=== PATIENT | male | born 1970 | race African-American/Black ===

== ENCOUNTER 2018-09-19 06:45 | Emergency (ER) | payer OTHER ==
--- NOTE | 2018-09-19 09:53 | ER Document Report ---
HPI - HPI Patient complains to provider of: spider bites Time Seen by Provider: 09/19/18 09:29 Pain Level: 3 Context: 40-year-old healthy male presents emergency department with chief complaint of spider bites. He was crawling in her house yesterday at work and was waiting to spider ribs and came out he started getting itchy. He started developing pustules in his bilateral ankles, groin, chest, bilateral arms. He said it started as itching but then turned pustular. Does not have a definitive source for a bite. States it is painless but just severe itching. Denies fevers or chills. Past Medical History - Social History Smoking Status: Current Every Day Smoker Frequency of alcohol use: 3-4xs weekly Family History: None Patient has suicidal ideation: No Patient has homicidal ideation: No Renal/ Medical History: Denies: Hx Peritoneal Dialysis Vertical Provider Document - CONSTITUTIONAL Notes: PHYSICAL EXAMINATION: Reviewed vital signs and charting by RN GENERAL: Alert, interacts well. No acute distress. HEAD: Normocephalic, atraumatic. EYES: Pupils equal, round, and reactive to light. Extraocular movements intact. ENT: Oral mucosa moist, tongue midline. EXTREMITIES: Moves all 4 extremities spontaneously. No edema, No cyanosis. PSYCH: Normal affect, normal mood. SKIN: Warm, dry, normal turgor. Several areas of pustules some spontaneously deroofed oozing clear/yellowish sanguinous fluid that is sporadic and systemic, worst around the ankles there are a couple of areas one in the groin with underlying erythema concerning for mild cellulitis Course - Re-evaluation Re-evalutation: 09/19/18 09:50 Well-appearing, systemic sporadic pustular lesions of unknown etiology but with a known environmental source from outdoors. I will treat him with prednisone 60 mg daily for 5 days, give him Atarax for symptomatic relief, and there are a couple of areas that are concerning for an early cellulitis so I will give him Keflex 500 mg 4 times a day for 5 days. ok For discharge - Vital Signs Vital signs: Temp Pulse Resp BP Pulse Ox 98.3 F 90 18 131/87 H 99 09/19/18 06:51 09/19/18 06:51 09/19/18 06:51 09/19/18 06:51 09/19/18 06:51 Discharge - Discharge Clinical Impression: Bites and stings, insect Qualifiers: Encounter type: initial encounter Qualified Code(s): W57.XXXA - Bitten or stung by nonvenomous insect and other nonvenomous arthropods, initial encounter Condition: Good Disposition: HOME, SELF-CARE Additional Instructions: You were seen in the emergency department this morning for bites of an unknown source. They do not appear to be brown recluse bites but if your skin starts to get black and necrotic you should immediately return to the emergency department for reevaluation. It is most likely from a spider of nonmedical importance, fire aunts, or some type of foliage underneath the house you were crawling th rough. Regardless the treatment is high-dose steroids. I am giving you prednisone 60 mg daily for 5 days. Please take 3 tablets all at once in the morning for 5 days. I am also giving a prescription for Keflex 500 mg 4 times per day by mouth. There are a couple of areas that are starting to get a little red that may or may not be an impending cellulitis. Regardless if they start to get worse or if you are concerned you can take the antibiotic as well. I am also giving Atarax that is for symptomatic relief only it is like Benadryl but sometimes works better for itching. If lesions get black as stated above, he start to get a fever, you become ill feeling, the lesions get worse, any of the areas become hot and red, or you have any other concerns please come back to the emergency department for reevaluation. I would like you to return in 24 hours for reevaluation to ensure that the steroids are doing its job and that we are moving in the right direction. Please use your best judgment, though.
[2018-09-19] MEDS ORDERED: HYDROXYZINE HCL 10 MG TABLET PO ONE (09:54)
[2018-09-19] MEDS ORDERED: PREDNISONE 20 MG TABLET PO ONE (09:54)
[2018-09-19 10:15] VITALS: BP 123/76
== END 2018-09-19 10:15 | disposition home or self-care (01) ==
LOC: ER 06:45
DX: T14.8XXA Other injury of unspecified body region, initial encounter (principal); W57.XXXA Bitten or stung by nonvenomous insect and other nonvenomous arthropods, initial encounter; F17.200 Nicotine dependence, unspecified, uncomplicated
CPT/HCPCS: 99281; J7512

== ENCOUNTER 2018-09-20 06:26 | Emergency (ER) | payer OTHER ==
--- NOTE | 2018-09-20 09:17 | ER Document Report ---
ED General - General Chief Complaint: Insect Bite Stated Complaint: POSSIBLE BUG BITE Time Seen by Provider: 09/20/18 08:35 Notes: Very pleasant 48-year-old male presents emergency department for worsening of bug bites. He was seen yesterday here by me and I instructed him for a 24-hour follow-up if his symptoms worsened or did not improve. He said that the bites on his ankles actually gotten worse and now look like bullous pemphigoid. He has no fevers, does not feel like his throat is closing up, no abdominal pain, nausea, vomiting. He does not have any itching. He just said that the the pustules have developed into bullae and many of them have opened up and there is a lot of underlying erythema and many of them. I placed him on a round of Keflex and gave him steroids yesterday and he did get those filled. TRAVEL OUTSIDE OF THE [place] IN LAST 30 DAYS: No - Related Data Allergies/Adverse Reactions: No Known Allergies Allergy (Unverified 09/19/18 07:54) Past Medical History - Social History Smoking Status: Unknown if Ever Smoked Family History: None Patient has suicidal ideation: No Patient has homicidal ideation: No Renal/ Medical History: Denies: Hx Peritoneal Dialysis Review of Systems - Review of Systems Constitutional: See HPI EENT: No symptoms reported Cardiovascular: See HPI Respiratory: See HPI Gastrointestinal: See HPI Genitourinary: No symptoms reported Male Genitourinary: No symptoms reported Musculoskeletal: No symptoms reported Skin: No symptoms reported Hematologic/Lymphatic: No symptoms reported Neurological/Psychological: No symptoms reported Physical Exam - Vital signs Vitals: Temp Pulse Resp BP Pulse Ox 98.3 F 79 16 126/83 H 96 09/20/18 06:32 09/20/18 06:32 09/20/18 06:32 09/20/18 06:32 09/20/18 06:32 - Notes Notes: PHYSICAL EXAMINATION: Reviewed vital signs and charting by RN GENERAL: Alert, interacts well. No acute distress. HEAD: Normocephalic, atraumatic. EYES: Pupils equal, round, and reactive to light. Extraocular movements intact. ENT: Oral mucosa moist, tongue midline. ABDOMEN: soft, non-tender. No distention. Bowel sounds present EXTREMITIES: Moves all 4 extremities spontaneously. No edema, No cyanosis. PSYCH: Normal affect, normal mood. SKIN: Warm, dry, normal turgor. 3 or 4 bullae on the left ankle that have increased from yesterday several areas of pustules that have deroofed on their own with some underlying erythema on bilateral ankles, thighs, left groin. Course - Re-evaluation Re-evalutation: 09/20/18 10:24 Patient return for 24-hour recheck. Left ankle has gotten worse the pustules have developed into bullae. I discussed with Dr. Amezquita and asked him to come briefly take a look at the patient. Most likely due to fire aunts and patient had a severe histamine reaction. Plan is to add Bactrim for MRSA coverage, add Benadryl 25 mg to 50 mg 3 times daily, Zantac twice daily, and continue with the Keflex and steroids. I gave him Rocephin 1 g IM here in the emergency department to augment the Keflex. I will also give him mupirocin to put over some of the open deroofed wounds. There is no evidence of anaphylaxis, throat is not tight, no nausea or vomiting, and I instructed patient once he gets insurance he should follow-up with primary to get dermatology consult. I have explained to patient the plan and course of action and gave him strict return precautions. At this time patient is stable for discharge. - Vital Signs Vital signs: Temp Pulse Resp BP Pulse Ox 98.3 F 79 16 126/83 H 96 09/20/18 06:32 09/20/18 06:32 09/20/18 06:32 09/20/18 06:32 09/20/18 06:32 Discharge - Discharge Clinical Impression: Bug bites Qualifiers: Encounter type: subsequent encounter Qualified Code(s): W57.XXXD - Bitten or stung by nonvenomous insect and other nonvenomous arthropods, subsequent encounter Condition: Good Disposition: HOME, SELF-CARE Additional Instructions: You are seen in the emergency department this morning for follow-up from your visit yesterday. After discussion with the attending physician and the progression of the bites it looks like you most likely are suffering from fire ant bites considering how diffuse they are. You are suffering from an allergic reaction from them. Because of this we are going to increase the treatment plan. We have added a medication called Bactrim which she should take twice a day for 7 days. Also, I want you to take Benadryl 25 or 50 mg 3 times a day. Because Benadryl is sedating I recommend that you take 25 mg during the day and then a 50 mg dose at night. Also, please go get [id number] Zantac and take it twice a day. We have also given you a shot of an antibiotic here in the emergency department this morning called Cale that will help to augment to the Keflex that you are already on. 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 Once your insurance is all set up and you establish primary care it would be a good idea to get a dermatology consult. If you start to develop fevers, your throat starts to close up, you develop abdominal pain or have nausea or vomiting, you get worsening redness or warmth at the site of those bites, or you have any other concerning symptoms please return for reevaluation. Also, please continue to take the steroids and finish them out. Prescriptions: Sulfamethoxazole/Trimethoprim [Bactrim Ds Tablet] 1 each PO BID 7 Days #14 tablet
[2018-09-20] MEDS ORDERED: CEFTRIAXONE 1 GM/D5W RTU 1 GM/50 ML RTUPB IV ONE (10:07)
[2018-09-20] MEDS ORDERED: SULFAMETHOXAZOLE/TRIMETHOPRIM 800-160 MG TABLET PO ONE (10:07)
[2018-09-20] MEDS ORDERED: FAMOTIDINE 20 MG TABLET PO ONE (10:08)
[2018-09-20] MEDS ORDERED: CEFTRIAXONE INJ 1000 MG VIAL IM ONE (10:30)
[2018-09-20] MEDS ORDERED: LIDOCAINE 1% INJ (10 MG/ML) 10 ML MDV INJ ONE (10:30)
[2018-09-20 11:24] VITALS: BP 122/86
== END 2018-09-20 11:24 | disposition home or self-care (01) ==
LOC: ER 06:26
DX: S90.562A Insect bite (nonvenomous), left ankle, initial encounter (principal); S90.561A Insect bite (nonvenomous), right ankle, initial encounter; W57.XXXA Bitten or stung by nonvenomous insect and other nonvenomous arthropods, initial encounter
CPT/HCPCS: 99281; 96372; J0696

== ENCOUNTER 2018-09-22 15:08 | Emergency (ER) | payer OTHER ==
--- NOTE | 2018-09-22 17:18 | ER Document Report ---
ED Medical Screen (RME) - General Chief Complaint: Insect Bite Stated Complaint: POSSIBLE INSECT BITE Time Seen by Provider: 09/22/18 16:09 Mode of Arrival: Ambulatory Information source: Patient Notes: Patient presents the emergency department with complaints of "insect bite" recheck. Patient reports fluid-filled blisters to his bilateral ankles as well as itchy and painful bumps to his groin, thighs, abdomen and arms. Patient reports he has been seen here twice for this and it continues to worsen. Patient reports he is already taking 2 different antibiotics and a round of steroids. I have greeted and performed a rapid initial assessment of this patient. A comprehensive ED assessment and evaluation of the patient, analysis of test results and completion of the medical decision making process will be conducted by additional ED providers. Dictation of this chart was performed using voice recognition software; therefore, there may be some unintended grammatical errors. TRAVEL OUTSIDE OF THE [place] IN LAST 30 DAYS: No - Related Data Allergies/Adverse Reactions: No Known Allergies Allergy (Verified 09/22/18 15:10) Past Medical History Renal/ Medical History: Denies: Hx Peritoneal Dialysis Physical Exam - Vital signs Vitals: Temp Pulse Resp BP Pulse Ox 98.1 F 84 18 119/76 98 09/22/18 15:13 09/22/18 15:13 09/22/18 15:13 09/22/18 15:13 09/22/18 15:13 Course - Vital Signs Vital signs: Temp Pulse Resp BP Pulse Ox 98.1 F 84 18 119/76 98 09/22/18 15:13 09/22/18 15:13 09/22/18 15:13 09/22/18 15:13 09/22/18 15:13
--- NOTE | 2018-09-22 18:49 | ER Document Report ---
ED General - General Chief Complaint: Insect Bite Stated Complaint: POSSIBLE INSECT BITE Time Seen by Provider: 09/22/18 16:09 Mode of Arrival: Ambulatory Information source: Patient Notes: This is a 48-year-old man with no significant medical problems that was working underneath a house on Wednesday between 11 AM and 1 PM and after coming out from underneath the house he noticed several lesions to the bottoms of his right foot. He does have some lesions on his inner right thigh and even on his penis. He was seen on 09/19 and treated with prednisone, Atarax and Keflex. He returned on 09/20 and was placed on Bactrim and given Benadryl. He returns today because of significant blistering lesions and he says they are getting worse. He is not been taking the Keflex. He denies any fever. TRAVEL OUTSIDE OF THE [place] IN LAST 30 DAYS: No - HPI Onset: Last week Onset/Duration: Gradual Quality of pain: Other Severity: None Pain Level: Denies Associated symptoms: denies: Chest pain, Fever - Irritation Exacerbated by: Denies Relieved by: Denies Similar symptoms previously: Yes Recently seen / treated by doctor: Yes - Related Data Allergies/Adverse Reactions: No Known Allergies Allergy (Verified 09/22/18 15:10) Past Medical History - General Information source: Patient - Social History Smoking Status: Unknown if Ever Smoked Cigarette use (# per day): No Chew tobacco use (# tins/day): No Frequency of alcohol use: None Drug Abuse: None Lives with: Family Family History: None Patient has suicidal ideation: No Patient has homicidal ideation: No - Medical History Medical History: Negative Renal/ Medical History: Denies: Hx Peritoneal Dialysis Surgical Hx: Negative Review of Systems - Review of Systems Constitutional: denies: Chills, Fever EENT: No symptoms reported Cardiovascular: No symptoms reported Respiratory: No symptoms reported Gastrointestinal: No symptoms reported Genitourinary: No symptoms reported Male Genitourinary: No symptoms reported Musculoskeletal: See HPI Skin: See HPI Hematologic/Lymphatic: No symptoms reported Neurological/Psychological: No symptoms reported Physical Exam - Vital signs Vitals: Temp Pulse Resp BP Pulse Ox 98.1 F 84 18 119/76 98 09/22/18 15:13 09/22/18 15:13 09/22/18 15:13 09/22/18 15:13 09/22/18 15:13 Notes: Physical exam: GENERAL: She is alert and oriented x3, no acute distress HEAD: Atraumatic, normocephalic. EYES: Pupils equal round and reactive to light, extraocular movements intact, sclera anicteric, conjunctiva are normal. ENT: Moist mucous membranes. NECK: Normal range of motion, supple Genitalia: He does have a few lesions on the head of the penis and on the scrotum. There is no fluctuance or evidence of secondary infection. NEUROLOGICAL: Cranial nerves II through XII grossly intact. Normal speech, moving all extremities. PSYCH: Normal mood, normal affect. Extremities: Patient does have lesions on the right thigh with some surrounding erythema. There is no drainage or fluctuance or suggestion of abscess. Right lower extremity patient does have several papular type lesions with blistering that appear to be fire ant lesions. He does have 2 large blisters on the medial aspect of the ankle. There is some overlying erythema but does not appear to have significant secondary infection at this time. The patient does have chronic changes on the dorsum of the ankle consistent with eczema. SKIN: Lesions as noted above. Course - Re-evaluation Re-evalutation: 09/22/18 18:45 1 of the blistering lesions was drained and a wound culture sent. Wound was dressed with Xeroform, 4 x 4's and Kerlix. We will have patient back for a wound check in 2 days. I will go over the patient's medical regimen with him. He was given chlorhexidine wash for the shower 09/22/18 18:46 - Vital Signs Vital signs: Temp Pulse Resp BP Pulse Ox 97.8 F 63 18 130/85 H 99 09/22/18 18:57 09/22/18 18:57 09/22/18 18:57 09/22/18 18:57 09/22/18 18:57 Discharge - Discharge Clinical Impression: Insect bites to the lower extremity Condition: Stable Disposition: HOME, SELF-CARE Additional Instructions: As far as the medications and when she did take: Continue with the Bactrim (this is an antibiotic): 1 tablet twice a day. Take the Keflex as prescribed (cephalexin: This is the other antibiotic). The Benadryl and the Atarax are for the itch. You can stop the prednisone at this point. I want you to wash with the chlorhexidine soap we gave you: Gently wash the lesions (not your face) in the shower once daily. Turn for wound check in 2 days. Keep the extremities elevated. Change the dressings daily. Forms: Follow-Up (Wound)
[2018-09-22 18:59] VITALS: BP 130/85
== END 2018-09-22 18:59 | disposition home or self-care (01) ==
LOC: ER 15:08
DX: S90.561A Insect bite (nonvenomous), right ankle, initial encounter (principal); S80.861A Insect bite (nonvenomous), right lower leg, initial encounter; W57.XXXA Bitten or stung by nonvenomous insect and other nonvenomous arthropods, initial encounter
CPT/HCPCS: 87070; 87077; 87186; 87205; 99281